=== PATIENT | male | born 1960 | race Caucasian/White ===

== ENCOUNTER → 2023-10-18 | Outpatient (CLI) | payer OTHER ==
[~2023-10-18] MED LIST: ASPI325 PO; ASPI81CH PO; ASPI81EC; ATEN50; ATOR10; ATOR80 PO; CLOP75 PO; CYAN500; Chantix1 MG PO; Crestor40 MG PO; ENTRESTO 24 MG1 EACH PO; EZET10 PO; FURO20 PO; HYDACE5 PO; Lisinopril2.5 MG; METO25ER PO; NAPR500 PO; NITR.4SL SL
== END ==
LOC: LAB 10:58 → LAB SHORT 10:58
DX: L82.1 Other seborrheic keratosis (principal)
CPT/HCPCS: 88305